=== PATIENT | male | born 2000 | race Caucasian/White ===

== ENCOUNTER 2023-04-02 15:46 | Emergency (ER) | payer OTHER, SELFPAY ==
[2023-04-02 15:52] VITALS: BP 150/82; PULSE 89; RESP 8; TEMP 36.6; O2SAT 97; BMI 28.1
--- NOTE | 2023-04-02 16:13 | ED_ITS ---
HPI - General Adult General Time Seen by Provider: 16:13 Date Seen: 04/02/23 Chief complaint: Psychiatric Problem/Disorder Stated complaint: Mental health Time Seen by Provider: 04/02/23 16:09 Source: patient, RN notes reviewed and old records reviewed Mode of arrival: ambulatory Limitations: no limitations History of Present Illness HPI narrative: 22-year-old male who comes in today for mental health assessment. Comes with his mom who encouraged him to come in today. Patient reports a long history of depression, previously was on fluoxetine for anxiety but has been off that for a while. No new stressors, admits to calling mom last night and saying he was thinking about killing himself. He says he has thought about killing himself off and on he for over year. Does say in the distant past he did tried hurt himself by breaking his ribs his ribs and crushing his neck. Related Data Home Medications Medication Instructions Recorded Confirmed No Known Home Medications 04/02/23 04/02/23 Allergies Allergy/AdvReac Type Severity Reaction Status Date / Time No Known Drug Allergies Allergy Verified 04/02/23 15:58 PFSH PFSH Social History Smoking Status: Current every day smoker What tobacco products do you use: cigarettes Do you use any of these nicotine containing products: Smokeless Tobacco How often do you have a drink containing alcohol: monthly or less How many standard drinks containing alcohol do you have on a typical day: 3 or 4 AUDIT-C Alcohol total score: 2 Non-prescribed substance use: denies use Exam Narrative: Exam Narrative: General: Well-developed and well-nourished, no acute distress Head: Atraumatic and normocephalic Eyes: Pupils are equal reactive, extraocular motions intact, conjunctiva clear ENT: External nose and ears are normal, posterior pharynx without erythema or exudate Neck: No midline cervical tenderness, full spontaneous range of motion the neck, trachea midline, no adenopathy Heart: Regular rate and rhythm no murmurs or thrills Lungs: Clear to auscultation bilaterally without wheezes or crackles Abdomen: Soft, nontender, nondistended with active bowel sounds Musculoskeletal: No tenderness, deformity, or edema Neurologic: Awake, alert, and oriented x3, no gross focal neurologic deficits, cranial nerves intact as tested Psych: Poor eye contact, flat affect, occasionally becomes mildly irritated with questioning Skin: No rashes Const: Vital Signs, click to edit/add: Vital Signs - 24 hr 04/02/23 15:52 Temperature 97.8 F Pulse Rate [Right Pulse Oximeter] 89 Respiratory Rate 8 L Blood Pressure [Ri ght Upper Arm] 150/82 H Pulse Oximetry 97 Oxygen Delivery Me thod Room Air Course Course Hospital Course: Patient seen examined, prior records reviewed. Patient presents today for evaluation of depression. This is longstanding problem, admits to intermittent suicidal ideation. Discussed plan for lab testing and mental health assessment. At this point patient is not holdable. Social determine of health affecting care includes smoking Reevaluation(s) Time of Reevaluation #1: 17:31 Reevaluation #1: Labs independently interpreted by a me with normal CBC including normal hemoglobin, reassuring basic panel, negative alcohol. Waiting for DEC assessment. Time of Reevaluation #2: 18:32 Reevaluation #2: Discussed with DEC recovery operator, Patient scheduled for outpatient appointments with therapist on Saturday. Stable for discharge. Vital Signs Vital signs: Initial Vital Signs Temperature 97.8 F 04/02/23 15:52 Temperature Source Temporal Artery Scan 04/02/23 15:52 Pulse Rate 89 04/02/23 15:52 Respiratory Rate 8 L 04/02/23 15:52 Blood Pressure 150/82 H 04/02/23 15:52 Blood Pressure Mean 104 04/02/23 15:52 Blood Pressure Position Sitting 04/02/23 15:52 Pulse Oximetry 97 04/02/23 15:52 Oxygen Delivery Method Room Air 04/02/23 15:52 Vital Signs Temperature 97.8 F 04/02/23 15:52 Pulse Rate 89 04/02/23 15:52 Respiratory Rate 8 L 04/02/23 15:52 Blood Pressure 150/82 H 04/02/23 15:52 Pulse Oximetry 97 04/02/23 15:52 Oxygen Delivery Method Room Air 04/02/23 15:52 Temperature 97.8 F 04/02/23 19:25 Pulse Rate 69 04/02/23 19:25 Respiratory Rate 16 04/02/23 19:25 Blood Pressure 121/75 04/02/23 19:25 Pulse Oximetry 97 04/02/23 15:52 Oxygen Delivery Method Room Air 04/02/23 15:52 Medical Decision Making Lab Data Labs: Lab Results 04/02/23 Range/Units 16:50 WBC 10.38 (4.50-11.00) K/uL RBC 5.46 (4.30-5.90) m/uL Hgb 16.2 (13.5-17.5) gm/dL Hct 48.1 (37.0-53.0) % MCV 88 (80-100) fL MCH 30 (26-34) pg MCHC 34 (32-36) gm/dL RDW Coeff of Sheldon 11.9 (11.5-15.5) % Plt Count 285 (140-440) K/uL Neut % (Auto) 76.3 H (42.0-72.0) % Lymph % (Auto) 15.2 L (20-44) % Mcdonough % (Auto) 6.0 (0.0-11.0) % Eos % (Auto) 1.9 (0.0-7.0) % Baso % (Auto) 0.4 (0.0-3.0) % Neut # (Auto) 7.90 H (1.7-7.0) K/uL Lymph # (Auto) 1.60 (0.90-2.90) K/uL Mcdonough # (Auto) 0.60 (0.00-0.90) K/UL Eos # (Auto) 0.20 (0.00-0.50) K/uL Baso # (Auto) 0.04 (0.00-0.30) K/uL Abs Immat Gran (auto) 0.02 (0.00-0.30) K/uL Imm/Tot Granulo (auto) 0.2 % Sodium 142 (135-149) mmol/L Potassium 3.7 (3.6-5.1) mmol/L Chloride 103 (96-114) mmol/L Carbon Dioxide 27 (20-32) mmol/L BUN 18 (5-24) mg/dL Creatinine 0.7 (0.5-1.5) mg/dL Estimated Creat Clear 184.76 Estimated GFR 135 ml/min Glucose 96 (60-115) mg/dL Calcium 9.3 (8.4-10.6) mg/dL Ethyl Alcohol < 0.01 L (0.01-0.03) % Discharge Plan Discharge Clinical Impression: Depression Patient Disposition: Home w/ Parent or Adult Condition: Stable Instructions: Depression (ED) Additional Instructions: Go to your appointments as scheduled by the mental health computed tomography technician Activity Level: Activity as Tolerated Prescriptions: No Action No Known Home Medications Stand Alone Forms: [facility] Info Instructions
[2023-04-02 16:56] LABS: Basophils Absolute Auto 0.04 K/uL (0.00-0.30); Basophils Percent Auto 0.4 % (0.0-3.0); Eosinophils Percent Auto 1.9 % (0.0-7.0); Hematocrit 48.1 % (37.0-53.0); Hemoglobin* 16.2 gm/dL (13.5-17.5); Immature Granulocytes Abs Auto 0.02 K/uL (0.00-0.30); Immature Granulocytes Pct Auto 0.2 %; Lymphocytes Percent Auto 15.2 % (20-44); Mean Corpuscular HGB Conc 34 gm/dL (32-36); Mean Corpuscular Hemoglobin 30 pg (26-34); Mean Corpuscular Volume 88 fL (80-100); Neutrophils Percent Auto 76.3 % (42.0-72.0); Platelet Count* 285 K/uL (140-440); RDW Coefficient of Variation % 11.9 % (11.5-15.5); Red Blood Count 5.46 m/uL (4.30-5.90); White Blood Count* 10.38 K/uL (4.50-11.00)
[2023-04-02 17:00] LABS: Slide Review Reflex No
[2023-04-02 17:23] LABS: Chloride* 103 mmol/L (96-114); Potassium* 3.7 mmol/L (3.6-5.1); Sodium* 142 mmol/L (135-149)
[2023-04-02 17:26] LABS: Blood Urea Nitrogen* 18 mg/dL (5-24); Carbon Dioxide* 27 mmol/L (20-32); Creatinine* 0.7 mg/dL (0.5-1.5); Est. Creatinine Clearance* 184.76; Estimated Glomerular Filt Rate 135 ml/min; Glucose* 96 mg/dL (60-115)
[2023-04-02 17:27] LABS: Calcium* 9.3 mg/dL (8.4-10.6)
[2023-04-02 17:29] LABS: Ethanol* < 0.01 % (0.01-0.03)
[2023-04-02 19:25] VITALS: BP 121/75; PULSE 69; RESP 16; TEMP 36.6
== END 2023-04-02 19:27 | disposition home or self-care (01) ==
PROVIDERS: Emergency Provider Family Medicine
DX: F32.A Depression, unspecified (principal)
CPT/HCPCS: 36415; 80048; 80306; 82077; 85025; 99283; 99284

== ENCOUNTER 2023-11-05 17:37 | Emergency (ER) | payer OTHER, SELFPAY ==
[2023-11-05 17:40] VITALS: BP 141/85; PULSE 70; RESP 16; TEMP 36.4; O2SAT 99; BMI 29.8
--- NOTE | 2023-11-05 17:56 | ED.GENADULT ---
HPI - General Adult General Chief complaint: Head Injury/Pain Stated complaint: Hit head Time Seen by Provider: 11/05/23 17:42 History of Present Illness HPI narrative: Pt states he hit head at work ([employer] ) yesterday. Pt states he slammed head into the bottom of a metal sink because I was underneath it to change out the detergent. Pt states he started getting a headache after hitting head, which has now worsened. Pt also states he is now nauseated. Pt went to urgent care, but unable to be seen today d/t capacity. 23-year-old young man presenting to the emergency department after striking his head during work yesterday. He was changing out the detergent or soap and sounds like went to stand up striking the back of his head into the bottom of the metal sink. Headache escalated since. He describes it as across his forehead and also at low posterior head/upper neck. He has also had nausea. He was clearly operating at less than usual ?efficiency? at work. This prompted attempt to be seen at urgent care but was quite busy there so presenting to the emergency department. Isn't having significant neck or back pain. Does have some discoordination or unsteadiness but he says he that that is longstanding/normal for him. No new visual changes. Nausea without vomiting. Not known to have sustained prior concussion. Related Data Home Medications Medication Instructions Recorded Confirmed No Known Home Medications 11/05/23 11/05/23 Allergies Allergy/AdvReac Type Severity Reaction Status Date / Time No Known Drug Allergies Allergy Verified 11/05/23 17:44 Review of Systems Status of ROS: Reports: 6 or more systems reviewed and unremarkable except as noted in History and below [facility] Social History Smoking Status: Current every day smoker What tobacco products do you use: cigarettes Do you use any of these nicotine containing products: Smokeless Tobacco How often do you have a drink containing alcohol: monthly or less How many standard drinks containing alcohol do you have on a typical day: 3 or 4 AUDIT-C Alcohol total score: 2 Non-prescribed substance use: denies use service: No Exam Narrative: Exam Narrative: Pleasant. Seems generally a little fatigued. Slightly slowed responses but very accurate in communication. Serial sevens are quite quick and accurate and this is also while being distracted with other testing. Head looks to be atraumatic though a little sore to palpation and posterior occipital area and cervical muscle insertion. No back tenderness. Cranial nerves 2-12 look to be intact. Pupils are equal 3-4 mm. Briskly reactive. Normal accommodation as noted. Moving all extremities without difficulty. Normal [id number]. Negative Romberg's. Normal toe heel. Heart is in regular rate and rhythm. Const: Vital Signs, click to edit/add: Vital Signs - 24 hr 11/05/23 17:40 Temperature 97.5 F L Pulse Rate [Pulse Oximeter] 70 Respiratory Rate 16 Blood Pressure [Ri t Upper Arm] 141/85 H Pulse Oximetry 99 Oxygen Delivery Me thod Room Air Documenting provider has reviewed patient's vital signs: yes Course Vital Signs Vital signs: Initial Vital Signs Temperature 97.5 F L 11/05/23 17:40 Temperature Source Temporal Artery Scan 11/05/23 17:40 Pulse Rate 70 11/05/23 17:40 Respiratory Rate 16 11/05/23 17:40 Blood Pressure 141/85 H 11/05/23 17:40 Blood Pressure Mean 103 11/05/23 17:40 Blood Pressure Position Sitting 11/05/23 17:40 Pulse Oximetry 99 11/05/23 17:40 Oxygen Delivery Method Room Air 11/05/23 17:40 Vital Signs Temperature 97.5 F L 11/05/23 17:40 Pulse Rate 70 11/05/23 17:40 Respiratory Rate 16 11/05/23 17:40 Blood Pressure 141/85 H 11/05/23 17:40 Pulse Oximetry 99 11/05/23 17:40 Oxygen Delivery Method Room Air 11/05/23 17:40 Temperature 97.5 F L 11/05/23 17:40 Pulse Rate 70 11/05/23 17:40 Respiratory Rate 16 11/05/23 17:40 Blood Pressure 141/85 H 11/05/23 17:40 Pulse Oximetry 99 11/05/23 17:40 Oxygen Delivery Method Room Air 11/05/23 17:40 Medical Decision Making MDM Narrative Medical decision making narrative: At a minimum has closed head injury. I think headache is partly due to tension given location of impact. I did offer treatment for headache though Mr. Nolan did not feel this was necessary. Unclear whether not there is concussion though does have some consistent symptoms. I would monitor for progression. I do not think head imaging is necessary here. Does not appear to be significant cervical injury either. Given work note. See patient discharge plan Discharge Plan Discharge Clinical Impression: Closed head injury Patient Disposition: Home, Self-Care Condition: Stable Additional Instructions: I do have concern that you may have sustained a mild concussion. Signs or symptoms of a concussion might be nausea or headache upon exertion which can also be an indication to back off that level of activity and reassess in a week.? Concussion can also be represented by smoldering nausea or smoldering headache, difficulty with concentration, mood lability, general somnolence, sense of persistent fog or dizziness/lightheadedness.? If these symptoms are becoming apparent and continuing beyond 7-10 days, be re-evaluated in clinic for further recommendations which may include some form of physical therapy. See handout on upper back stretches. I would also do some gentle forward neck pulldowns a few times daily. I think some of your headache is related to tension and so working out these muscles I am hopeful will help your headache. Otherwise ibuprofen and acetaminophen. Your brain needs rest and hydration. Prescriptions: No Action No Known Home Medications Follow Up/Referrals: Provider,Not a Local [Primary Care Provider] - Stand Alone Forms: [employer] Info Instructions
== END 2023-11-05 18:37 | disposition home or self-care (01) ==
PROVIDERS: Emergency Provider Family Medicine
DX: S09.90XA Unspecified injury of head, initial encounter (principal); W22.8XXA Striking against or struck by other objects, initial encounter
CPT/HCPCS: 99282; 99283; 99284

== ENCOUNTER 2025-05-03 14:14 | Emergency (ER) | payer BC, SELFPAY ==
--- OUTSIDE RECORDS SUMMARY | 2025-05-03 14:16 | XMS_ITS | Clinical Summary ---
Author Organization [facility] Address [address] [place] [id number] Care Team Providers Care Dispatch Manager Name Role Phone Pcp, No Primary Care Provider Unavailabl e Allergies No known active allergies Medications multivitamin (MVI) tablet Take 1 tablet by mouth once daily. 0 10/16/2017 Active Active Problems Problem Noted Date Diagnosed Date Anxiety 01/01/2018 Need for HPV vaccine 01/01/2018 Immunizations Immunization Administration Dates Next Due DTaP 09/13/2009, 7,11/22/2003,05/12,2002,2002,2002 HIB-HepB (Comvax) 11/22/2003,2002,07/15/20 02 HPV 9 (Gardasil 9) 01/01/2018,07/14/2015, 015 Hepatitis A (Adult) 06/13/2012,2002 Hepatitis A (Peds) 09/13/2009 Inactivated Polio Vaccine 03/10/2007,,2002,07/15 Influenza, IIV3 (Age 6-35 mos) 2002,2002 Influenza, IIV3 (Age >=3 years) 07/14/20 15,07/10/2014,10/13/2013,06/13 Influenza, IIV4 07/16/2018 MENINGOCOCCAL VACCINE 2 VIAL [id number] (MENVEO) 07/16/2018,10/13/2013 MMR 2003 MMRV 03/10/2007 Pneumococcal conj 7-Valent (Prevnar 7) 3,2002,2002 Tdap 10/13/2013 Varicella Vaccine 2003 Family History Medical History Relation Name Comments Diabetes Maternal Aunt Diabetes Maternal Grandfather Hypertension Maternal Grandmother Stroke Maternal Grandmother Diabetes Maternal Uncle Hypertension Mother Heart murmur Paternal Grandmother Relation Name Status Comments Maternal Aunt Maternal Grandfather Maternal Grandmother Maternal Uncle Mother Paternal Grandmother Social History Tobacco Use Types Packs/Day Years Used Date Smoking Tobacco: Every Day Cigarettes 0.5 2.6 Started: 09/21/2022 Smokeless Tobacco: Never Tobacco Cessation:Ready to Q uit: No; Counseling Given: Yes Alcohol Use Standard Drinks/Week Comments Yes 0 (1 standard drink = 0.6 oz pur e alcohol) occ PHQ-2 Answer Date Recorded PHQ-2 Score 1 11/17/2018 Social Connections Answer Date Recorded Frequency of Communication with Friends and Fami ly Not on file 09/16/2021 Financial Resource Strain Answer Date R ecorded Difficulty of Paying Living Expenses Not on file 09/16/2021 Difficulty of Paying Living Expenses Not on file 09/16/2021 Sex and Gender Information Value Date Recorded Sex Assigned at Not on file 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 Gender Identity Not on file Sexual Orientation Not on file Obstetrics History Last Filed Vital Signs Vital Sign Reading Time Taken Comments Blood Pressure 156/73 12/13/2022 3:47 PM CDT Pulse 89 12/13/2022 3:47 PM CDT Temperature 36.7 C (98.1 F) 12/13/2022 3:47 PM CDT Respiratory Rate - - Oxygen Saturation 98% 12/13/2022 3:47 PM CDT Inhaled Oxygen Concentration - - Weight 100.2 kg (220 lb 14.4 oz) 12/13/2022 3:47 PM CDT Height 179.7 cm (5' 10.75) 12/13/2022 3:47 PM C DT Body Mass Index 31.03 12/13/2022 3:47 PM CDT Plan of Treatment Health Maintenance Due Date Last Done Comments HIV for age 15-65 2017 Depression screening for age 12+ 07/18/2019 07/18/2018, 07/16/2018, 01/01/2018, Additional history exists Hepatitis C screening for age 18-79 2020 Tetanus booster 10/13/2023 10/13/2013 BMI (ht and wt on same day) for age 18+ 12/14/2023 12/13/2022 COVID-19 vaccine series ( season) 2024 06/01/2021, 05/04/2021 Influenza Vaccine (#1) 2025 8, 07/14/2015, 07/10/2014, Additional history exists Pneumococcal series for age 6-49 Aged Out 2002, 2002, 2002 No longer eligible based on patient's age to complete this topic Hepatitis B series for 19+ Completed 11/21, 2002, 2002 HPV series for age 9-26 Completed 01/02/20 18, 07/14/2015, 2015 Insurance [employer] CHO[employer] Care Teams Dispatch Manager Relationship Specialty Start Date End Date Pcp, No . PCP - General 10/14/17
[2025-05-03 14:25] VITALS: BP 143/84; PULSE 94; RESP 20; TEMP 36.6; O2SAT 97; BMI 32.8
--- NOTE | 2025-05-03 15:42 | ED.GENADULT ---
HPI - General Adult General Date Seen: 05/03/25 Chief complaint: Fall/Minor Trauma Stated complaint: Fell, hit head Time Seen by Provider: 05/03/25 15:40 History of Present Illness HPI narrative: 24-year-old male presenting to ER today for evaluation of head injury. Injury occurred last night as a ground level fall when he tripped and fell. He hit his head against a piece of furniture in his bedroom. No loss of consciousness. He does have some red abrasions on his forehead. He has a mild headache. He suffered his concussion yesterday evening in his bedroom. He does report that he was drinking (about 5-6 shots) he was intoxicated enough to feel but does but not intoxicated enough to feel entirely drunk. He was in his bedroom and he was bending forward when he slipped on his blankets her sheets when there under his feet. He fell forward and struck his forehead against a been next to his bed. He was not knocked out but was momentarily dazed. He says that his girlfriend noted that he sent her some unusually were did texts after the fall. He was able to sleep normally. He was able to get up and go to work in his job at [employer] today. He notes that while at work staring at screens and doing physical activity such as carrying things and going outside do make him feel a mild headache and mildly nauseous. He also feels a bit dizzy. He does not have a severe headache and politely but firmly declines offered medication, even Tylenol. He is mildly nauseous but not vomiting. He is not confused. Vision is. No numbness or weakness in his arms or legs. No neck pain. No other injuries from the fall. He does have a visible red diagonal satish across his forehead . His his girlfriend and his mother both demanded that he come to the doctor to be checked to see if he has a concussion or not. Per medical record was seen here in the ER 11/05/2023 for head injury. Apparently he hit his head against the counter at work when he was changing detergent. Related Data Home Medications ?Medication ?Instructions ?Recorded ?Confirmed No Known Home Medications 11/05/23 05/03/25 Allergies Allergy/AdvReac Type Severity Reaction Status Date / Time No Known Drug Allergies Allergy Verified 05/03/25 14:24 PFSH [facility] Social History Smoking Status: Current every day smoker What tobacco products do you use: cigarettes Do you use any of these nicotine containing products: Smokeless Tobacco How often do you have a drink containing alcohol: monthly or less How many standard drinks containing alcohol do you have on a typical day: 3 or 4 AUDIT-C Alcohol total score: 2 Non-prescribed substance use: denies use service: No Exam Narrative: Exam Narrative: Constitutional: Appears well-developed and well-nourished. Alert. Conversant. Non toxic. HENT: Head: Diagonal red satish across the forehead. No underlying hematoma, bruising. No depressed skull fracture. Exam head trauma. Nose: Nose normal. Mouth/Throat: Oral mucosa is clear and moist. no trismus. Pharynx normal. Tonsils symmetric. No tonsillar enlargement, erythema, or exudate. Eyes: Conjunctivae normal. EOM normal. Pupils equal, round, and reactive to light. No scleral icterus. Neck: Normal range of motion. Neck supple. No tracheal deviation present. Cardiovascular: Normal rate, regular rhythm. No gallop. No friction rub. No murmur heard. Symmetric radial artery pulses Pulmonary/Chest: Effort normal. No stridor. No respiratory distress. No wheezes. No rales. No rhonchi . No tenderness. Abdominal: Soft. Bowel sounds normal. No distension. No mass. No tenderness. No rebound. No guarding. Musculoskeletal: RUE: Normal range of motion. No tenderness. No deformity LUE: Normal range of motion. No tenderness. No deformity RLE: Normal range of motion. No edema. No tenderness. No deformity LLE: Normal range of motion. No edema. No tenderness. No deformity Lymph: No cervical adenopathy. Neurological: Alert and oriented to person, place, and time. Normal strength. CN II-VII intact. No sensory deficit. GCS eye subscore is 4. GCS verbal subscore is 5. GCS motor subscore is 6. Normal coordination Skin: Skin is warm and dry. No rash noted. No pallor. Normal capillary refill. Psychiatric: Normal mood. Normal affect. Const: Vital Signs, click to edit/add: Vital Signs - 24 hr 05/03/25 14:25 Temperature 97.8 F Pulse Rate [Pulse Oximeter] 94 Respiratory Rate 20 Blood Pressure [Ri ght Upper Arm] 143/84 H Pulse Oximetry 97 Oxygen Delivery Me thod Room Air Course Vital Signs Vital signs: Initial Vital Signs Temperature 97.8 F 05/03/25 14:25 Temperature Source Temporal Artery Scan 05/03/25 14:25 Pulse Rate 94 05/03/25 14:25 Respiratory Rate 20 05/03/25 14:25 Blood Pressure 143/84 H 05/03/25 14:25 Blood Pressure Mean 103 05/03/25 14:25 Pulse Oximetry 97 05/03/25 14:25 Oxygen Delivery Method Room Air 05/03/25 14:25 Vital Signs Temperature 97.8 F 05/03/25 14:25 Pulse Rate 94 05/03/25 14:25 Respiratory Rate 20 05/03/25 14:25 Blood Pressure 143/84 H 05/03/25 14:25 Pulse Oximetry 97 05/03/25 14:25 Oxygen Delivery Method Room Air 05/03/25 14:25 Temperature 97.8 F 05/03/25 14:25 Pulse Rate 94 05/03/25 14:25 Respiratory Rate 20 05/03/25 14:25 Blood Pressure 143/84 H 05/03/25 14:25 Pulse Oximetry 97 05/03/25 14:25 Oxygen Delivery Method Room Air 05/03/25 14:25 Medical Decision Making MDM Narrative Medical decision making narrative: This patient presents with a head injury. The differential diagnosis includes skull fracture, epidural hematoma, subdural hematoma, intracerebral hemorrhage, and traumatic subarachnoid hemorrhage; all of these are highly unlikely in this clinical setting. This patient denies severe headache, seizure, and has no focal neurological findings. Patient did not have any seizure after the injury, and is not anticoagulated . The patient has a normal GCS. They have not had any significant vomiting. They have no sign of open or depressed skull fracture /basilar skull fracture. They are less than age 65. The patient did not have prolonged LOC, sleepiness, repeated emesis, poor orientation, or significant irritability. They are low risk by the [employer] head CT rule. I have discussed the risk/benefit analysis with the patient and family regarding CT imaging. We have decided to hold off on this at this time. The patient/family understand that they must return if any red flags appear/develop in the coming hours/days, as this may represent an indication to perform a CT scan. I have noted that red flags include: headaches that get worse, increased drowsiness, strange behavior, repetitive speech, seizures, repeated vomiting, growing confusion, increased irritability, slurred speech, weakness or numbness, and loss of responsiveness. This information will also be provided in writing at discharge. I have discussed the second impact syndrome, and the importance of not sustaining repeated concussion in the next 1-2 weeks. Post concussive syndrome is also discussed. The patient's questions were answered. Work note provided. He is declining offer Tylenol for his headache. He says is really not that bad. They have a responsible adult to accompany them home. Discharge Plan Discharge Clinical Impression: Concussion Patient Disposition: Home, Self-Care Condition: Stable Instructions: Concussion (ED) Additional Instructions: As we discussed, your symptoms are consistent with a concussion or head your concussion may take some time to heal. While you are healing try to rest and avoid activities that make your concussion symptoms worse. Avoid strenuous physical activity, exposure to screens or bright lights, or other activities that make your headache, nausea, dizziness or other symptoms worse. As we discussed, return to the ER right away if you have worsening severe headache, blurry vision, uncontrolled vomiting the the, seizure, or if you have any other concerns. If you are not completely improved within 7 days, please recheck with your doctor or come back to the ER. Prescriptions: No Action No Known Home Medications Follow Up/Referrals: Provider,Not a Local [Primary Care Provider, Family Practice] Stand Alone Forms: Work/School Release, [facility] Info Instructions
== END 2025-05-03 16:36 | disposition home or self-care (01) ==
LOC: ED 16:29
PROVIDERS: Emergency Provider Emergency Medicine
DX: S06.0X1A Concussion with loss of consciousness of 30 minutes or less, initial encounter (principal); F10.90 Alcohol use, unspecified, uncomplicated; F17.210 Nicotine dependence, cigarettes, uncomplicated; W01.198A Fall on same level from slipping, tripping and stumbling with subsequent striking against other object, initial encounter; Y92.003 Bedroom of unspecified non-institutional (private) residence as the place of occurrence of the external cause
CPT/HCPCS: 99282; 99283